=== PATIENT | male | born 2000 | race Caucasian/White ===

== ENCOUNTER 2018-04-11 13:06 | Emergency (ER) | payer MEDICAID ==
[~2018-04-11] VITALS: Ht 188 cm; Wt 78.0 kg
[2018-04-11] MEDS ORDERED: HYDROcodone-ACET 10/325MG TAB PO ONE ×2 (14:45→15:30)
[2018-04-11 14:51] LABS: Basophils # (auto) 0.1 uL; Basophils % (auto) 0.3 % (0.0-2.0); Eosinophils # (auto) 0 uL; Eosinophils % (auto) 0.2 % (0.0-7.0); Hematocrit 40.6 % (41.0-53.0); Lymphocytes % (auto) 5.1 % (10.0-50.0); Mean Corpuscular Hemoglobin 30.4 pg (28.0-32.0); Mean Corpuscular Hgb Conc. 34.6 g/dL (32.0-36.0); Mean Corpuscular Volume 87.9 fL (80.0-100.0); Monocytes # (auto) 1.2 uL; Monocytes % (auto) 5.6 % (0.0-12.0); Neutrophils # (auto) 18.3 uL; Neutrophils % (auto) 88.8 % (37.0-80.0); Nucleated Red Blood Cells % 0.1 %; Platelet Count (auto) 262 10^3/uL (140-450); Red Blood Cells 4.62 10^6/uL (4.5-5.90); White Blood Cell 20.6 10^3/uL (4.4-10.8)
[2018-04-11] MEDS ORDERED: KETOROLAC TROMETH 60MG/2ML VIAL IM ONE (15:00)
[2018-04-11 15:13] LABS: Albumin 4.5 g/dL (3.4-5.0); BUN/Creatinine Ratio 11.7; Bilirubin, Total 0.9 mg/dL (0.2-1.0); Calcium 8.6 mg/dL (8.5-10.1); Potassium 3.3 mmol/L (3.5-5.1); Total Protein 7.5 g/dL (6.4-8.2)
[2018-04-11 15:17] LABS: INR 0.98 (0.9-1.15); Prothrombin Time 10.5 sec (9.27-12.13)
[2018-04-11] MEDS ORDERED: POTASSIUM CHL 20 Meq TABLET PO ONE (19:15)
[2018-04-11 19:48] VITALS: BP 140/71
== END 2018-04-11 20:31 | disposition home or self-care (01) ==
LOC: ER 13:16
DX: S42.012A Anterior displaced fracture of sternal end of left clavicle, initial encounter for closed fracture (principal); S13.4XXA Sprain of ligaments of cervical spine, initial encounter; V86.56XA Driver of dirt bike or motor/cross bike injured in nontraffic accident, initial encounter; Y93.89 Activity, other specified; Y99.8 Other external cause status; Y92.89 Other specified places as the place of occurrence of the external cause
CPT/HCPCS: 36415; 70450; 71250; 72125; 73000; 73030; 73090; 80053; 85025; 85610; 96372; 99285; J1885

== ENCOUNTER 2024-08-18 23:27 | Emergency (ER) | payer SELFPAY ==
[~2024-08-18] VITALS: Ht 193 cm; Wt 95.3 kg
--- NOTE | 2024-08-18 23:45 | ED.PDOC ---
HPI Comments 23 year old male brought in by EMS presents to the ED with a chief complaint of palpitations onset today around 22:00. Per EMS, patient had an edible around 20:00, began experiencing palpitations at 22:00 and called EMS. Upon EMS arrival, patient's HR was 160, IV fluids were given and upon ED arrival HR was 130. Patient states he had edible yesterday as well for back pain and experienced no symptoms. He states edible consumed this evening contained 10 mg. He is currently c/o shortness of breath, chest pain/ tightness radiates to neck, bilateral arm numbness/weakness. Denies any past medical history as well as cough, congestion, nausea, vomiting, diarrhea, headache, blurry vision, dizziness. No other symptoms or modifying factors present at this time. Chief Complaint: Palpitations Time Seen by MD: 23:35 Primary Care Provider: AUDIE Reviewed Notes: Medications, Allergies Allergies: Coded Allergies: NO KNOWN ALLERGIES (Unverified , 01/12/14) Information Source: Patient, Emergency Med Personnel Mode of Arrival: EMS Severity: Moderate Timing: Hours Duration: Since onset Prehospital treatment: IVF Location: Chest (L) Radiation: Neck, Arm (R), Arm (L) Quality: Pressure Cardiac Risk Factors: None PE Risk Factors: None History of: None Modifying Factors: Nothing Associated Signs and Symptoms: SOB, Palpitations Past Medical History PAST MEDICAL HISTORY: Denies Surgical History: Denies all surgeries Family History Family History: Unknown Social History Smoker: Non-Smoker Alcohol: Rarely Drugs: Marijuana Lives In: Home Constitutional: denies: chills, diaphoresis, fatigue, fever, malaise, sweats, weakness, others EENTM: denies: blurred vision, double vision, ear bleeding, ear discharge, ear drainage, ear pain, ear ringing, eye pain, eye redness, hearing loss, mouth pain, mouth swelling, nasal discharge, nose bleeding, nose congestion, nose pain, photophobia, tearing, throat pain, throat swelling, voice changes, others Respiratory: reports: shortness of breath; denies: cough, hemoptysis, orthopnea, SOB at rest, SOB with excertion, stridor, wheezing, others Cardiovascular: reports: chest pain, palpitations; denies: dizzy spells, diaphoresis, Dyspnea on exertion, edema, irregular heart beat, left arm pain, lightheadedness, PND, syncope, others Gastrointestinal: denies: abdomen distended, abdominal pain, blood streaked bowels, constipated, diarrhea, dysphagia, difficulty swallowing, hematemesis, melena, nausea, poor appetite, poor fluid intake, rectal bleeding, rectal pain, vomiting, others Genitourinary: denies: burning, dysuria, flank pain, frequency, hematuria, incontinence, penile discharge, penile sore, pain, testicle pain, testicle swelling, urgency, others Neurological: denies: dizziness, fainting, headache, left sided numbness, left sided weakness, numbness, paresthesia, pre-existing deficit, right sided numbness, right sided weakness, seizure, speech problems, tingling, tremors, weakness, others Musculoskeletal: reports: neck pain, others (bilateral arms numbness and weakness ); denies: back pain, gout, joint pain, joint swelling, muscle pain, muscle stiffness Integumetry: denies: bruises, change in color, change in hair/nails, dryness, laceration, lesions, lumps, rash, wounds, others Allergic/Immunocompromised: denies: Difficulty Healing, Frequent Infections, Hives, Itching, others Hematologic/Lymphatic: denies: anemia, blood clots, easy bleeding, easy bruising, swollen glands, others Endocrine: denies: excessive hunger, excessive sweating, excessive thirst, excessive urination, flushing, intolerance to cold, intolerance to heat, unexplained weight gain, unexplained weight loss, others Psychiatric: denies: anxiety, bipolar disorder, depression, hopeless, panic disorder, schizophrenia, sleepless, suicidal, others All Other Systems: Reviewed and Negative Physical Exam General Appearance: Mild Distress HEENT: PERRL/EOMI, Other (dry mucous membranes) Neck: Full Range of Motion, Normal Inspection Respiratory: Lungs Clear, No Accessory Muscle Use, No Respiratory Distress, Normal Breath Sounds Cardiovascular: No Edema, No JVD, Tachycardia Breast Exam: Deferred Gastrointestinal: Non Tender, Soft Genitalia: Deferred Pelvic: Deferred Rectal: Deferred Extremities: Normal inspection, Normal range of motion, Non-tender, No pedal edema Neurologic: Alert (oriented x 4), Normal Affect, Other (Appears anxious. Moves all extremities. No gross focal deficit.) Cerebellar Function: NOT DONE Reflexes: NOT DONE Skin: Dry, Pallor, Warm Lymphatic: NOT DONE EKG EKG : Comments Sinus tach, rate 130, normal NE and QRS intervals, QTC prolonged at 615, normal axis, normal QRS, nonspecific T changes. Was a procedure done? Was a procedure done?: No CP Differential Dx Differential Diagnosis: Angina, Anxiety / Panic Attack, Atrial Dysrhythmia, Electrolyte Disorder, Heart Failure, IA, Pulmonary Embolus, Sinus Tachycardia Differential Diagnosis: CHF Differential Diagnosis: Angina, Chest Wall Pain, Esophageal reflux/spasm, Gastritis, Myocardial Infarction, Pericarditis, Pneumonia, Pneumothorax X-Ray, Labs, Meds, VS Vital Signs Date Time Temp Pulse Resp B/P (MAP) Pulse Ox O2 Delivery O2 Flow Rate FiO2 08/18/24 23:32 130 08/18/24 23:28 98.9 136 20 149/74 (99) 98 Lab Test 08/19/24 01:26 08/18/24 23:38 Range/Units Troponin I High Sensitivity < 3 L < 3 L </=54 ng/L White Blood Count 10.5 4.4-10.8 10^3/uL Red Blood Count 4.77 4.5-5.90 10^6/uL Hemoglobin 14.4 13.5-17.5 g/dL Hematocrit 42.1 41.0-53.0 % Mean Corpuscular Volume 88.3 80.0-100.0 fL Mean Corpuscular Hemoglobin 30.3 28.0-32.0 pg Mean Corpuscular Hemoglobin Concent 34.3 32.0-36.0 g/dL Red Cell Distribution Width 13.3 11.8-14.3 % Platelet Count 300 140-450 10^3/uL Mean Platelet Volume 8.2 6.9-10.8 fL Neutrophils (%) (Auto) 53.6 37.0-80.0 % Lymphocytes (%) (Auto) 34.1 10.0-50.0 % Monocytes (%) (Auto) 8.1 0.0-12.0 % Eosinophils (%) (Auto) 3.2 0.0-7.0 % Basophils (%) (Auto) 1.0 0.0-2.0 % Neutrophils # (Auto) 5.7 1.6-8.6 10 ^3/uL Lymphocytes # (Auto) 3.6 0.4-5.4 10 ^3/uL Monocytes # (Auto) 0.8 0-1.3 10 ^3/uL Eosinophils # (Auto) 0.3 0-0.8 10 ^3/uL Basophils # (Auto) 0.1 0-0.2 10 ^3/uL Nucleated Red Blood Cells 0.0 % Sodium Level 141 136-145 mmol/L Potassium Level 3.3 L 3.5-5.1 mmol/L Chloride Level 108 H 98-107 mmol/L Carbon Dioxide Level 24 20-31 mmol/L Anion Gap 9 5-15 Blood Urea Nitrogen 10 9-23 mg/dL Creatinine 1.13 0.700-1.30 mg/dL Glomerular Filtration Rate Calc 93 >90 mL/min BUN/Creatinine Ratio 8.8 L 10.0-20.0 Serum Glucose 141 H 74-106 mg/dL Calcium Level 9.6 8.7-10.4 mg/dL B-Type Natriuretic Peptide 4.50 0-100 pg/mL Plasma/Serum Blood Alcohol < 3.0 <10 mg/dL X-Ray, Labs, Meds, VS Comment 23-year-old male with no significant past medical history brought in by EMS from home complaining of palpitations and found to be tachycardic Vitals remarkable for heart rate 136, BP 149/74 Exam remarkable for tachycardia and pallor Rhythm strip independently interpreted by me: Sinus tach, rate 130, no ectopy. Chest x-ray independently interpreted by me: Cardiac silhouette normal size, no infiltrate or effusion, normal mediastinal width, grossly normal bony thorax, no subdiaphragmatic free air, no pneumothorax. CBC unremarkable, basic metabolic panel remarkable for potassium 3.3, BNP normal, 2 serial troponins negative, alcohol negative, urine drug screen pending Patient treated with the following in the ED: 2 L 0.9 normal saline IV bolus, Ativan 2 mg IV, effervescent potassium 50 mEq p.o. On re-evaluation, vitals are stable. Tachycardia has resolved. Patient is well-appearing. Hospitalization was considered, however patient had rapid improvement of symptoms with treatment in the ED, and I no longer feel hospitalization is necessary. Patient now appears stable for outpatient treatment and close follow-up with his primary physician. Time of 1ST Reevaluation: 00:05 Reevaluation 1ST: Unchanged Patient Education/Counseling: Diagnosis, Treatment, Prognosis Family Education/Counseling: No Family Present Departure 1 Departure Time of Disposition: 01:51 Impression: Primary Impression: Palpitations Additional Impression: Tachycardia Disposition: 01 HOME / SELF CARE / HOMELESS Condition: Stable Additional Instructions: Your blood tests, including test for heart attack and heart failure were unremarkable except for a low potassium. This can cause a rapid heart rate and palpitations. We have replaced your potassium in the ER. Your EKG was unremarkable except for a rapid heart rate. Your chest x-ray was normal. Follow-up with your primary doctor in 1-2 days. Discharged With: Self Critical Care Note Critical Care Time?: No Stability Stability form required: No Heart Score Heart Score: Heart Score Response (Comments) Value History Slightly Suspicious 0 EKG Repolarization Disturb 1 Age <45 0 Risk Factors No known risk factors 0 Troponin Normal limit 0 Total 1 I personally scribed for KIA WHITMAN MD ([email or web address]) on 08/18/24 at 23:45. Electronically submitted by Batsheva Temple ([email or web address]). KIA WHITMAN MD Aug 18, 2024 23:45
[2024-08-19 01:36] LABS: Basophils # (auto) 0.1 10 ^3/uL (0-0.2); Eosinophils # (auto) 0.3 10 ^3/uL (0-0.8); Eosinophils % (auto) 3.2 % (0.0-7.0); Hematocrit 42.1 % (41.0-53.0); Hemoglobin 14.4 g/dL (13.5-17.5); Lymphocytes # (auto) 3.6 10 ^3/uL (0.4-5.4); Lymphocytes % (auto) 34.1 % (10.0-50.0); Mean Corpuscular Hemoglobin 30.3 pg (28.0-32.0); Mean Corpuscular Hgb Conc. 34.3 g/dL (32.0-36.0); Mean Corpuscular Volume 88.3 fL (80.0-100.0); Monocytes # (auto) 0.8 10 ^3/uL (0-1.3); Monocytes % (auto) 8.1 % (0.0-12.0); Neutrophils # (auto) 5.7 10 ^3/uL (1.6-8.6); Neutrophils % (auto) 53.6 % (37.0-80.0); Platelet Count (auto) 300 10^3/uL (140-450); Red Blood Cells 4.77 10^6/uL (4.5-5.90); Red Cell Distribution Width 13.3 % (11.8-14.3); White Blood Cell 10.5 10^3/uL (4.4-10.8)
[2024-08-19 01:49] LABS: Anion Gap 9 (5-15); BUN/Creatinine Ratio 8.8 (10.0-20.0); Blood Urea Nitrogen 10 mg/dL (9-23); Calcium 9.6 mg/dL (8.7-10.4); Carbon Dioxide 24 mmol/L (20-31); Chloride 108 mmol/L (98-107); Glucose 141 mg/dL (74-106); Potassium 3.3 mmol/L (3.5-5.1); Sodium 141 mmol/L (136-145)
[2024-08-19 02:02] LABS: Blood Alcohol < 3.0 mg/dL (<10)
--- NOTE | 2024-08-19 03:14 | DVH ---
Examination: CXRP Clinical Indication: tachy Comparison: None. Technique: Frontal radiograph of the chest was obtained. Findings: Lungs are clear and well expanded with no pulmonary infiltrate or pleural effusion. There is no pneumothorax. The cardiomediastinal silhouette is within normal limits. No acute osseous abnormality is seen. Chronic fracture deformity of left clavicle is seen. Impression: 1. No acute cardiopulmonary disease is seen. 2. Chronic fracture deformity of left clavicle is seen. Electronically Signed 08/19/2024 03:13 Lindy Shah
[2024-08-19 03:30] VITALS: RESP 18; O2SAT 96
[2024-08-19] MEDS: SODIUM CHLORIDE 0.9% 2,600 ML IV ONE (04:21)
[2024-08-19] MEDS: LORazepam 2MG/ML-1ML VIAL IV ONE (04:21)
[2024-08-19] MEDS: POTASSIUM EFFERVESENT TAB 25 MEQ PO ONE (04:22)
[2024-08-19 04:26] VITALS: BP 134/78; PULSE 110; RESP 18; O2SAT 96
--- NOTE | 2024-08-19 06:42 | ECG ---
[facility] Test Date: 2024-08-18 Test Time: 23:32:27 Pat Name: ADEEL BERNARD Department: ER Room: Gender: M [employer] Diver: JAJA : 2000 Requested By: KIA MENDEZ Order Number: [id number] Reading MD: Measurements Intervals [place] Rate: 130 P: -75 NH: 104 QRS: 78 QRSD: 85 T: 39 QT: 418 QTc: 615 Interpretive Statements Sinus or ectopic atrial tachycardia Prolonged QT interval Please click the below link to view image of tracing.
== END 2024-08-19 04:30 | disposition home or self-care (01) ==
LOC: EDBD 23:27 → ER 23:27
DX: R00.2 Palpitations (principal); R00.0 Tachycardia, unspecified; R07.9 Chest pain, unspecified; R53.1 Weakness; M54.9 Dorsalgia, unspecified
CPT/HCPCS: 36415; 71045; 80048; 80320; 83880; 84484; 85025; 93005